=== PATIENT | male | born 1965 | race Caucasian/White ===

== ENCOUNTER 2016-07-27 00:26 | Emergency (ER) | payer OTHER, BC ==
[~2016-07-27 00:26] MED LIST: ALLO100T PO; HYDR-2762 PO; HYDR-971 PO; LEVO150T5 PO; MELO15TA6 PO; METH-37 PO; MONT10TA9 PO; TRAM50TA PO
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
[2016-07-27 00:57] LABS: HEMOGLOBIN ISTAT 14.3 gm/dL
[2016-07-27] MEDS: KETOROLAC 60 MG/2 ML VIAL. IM ONE (01:00)
[2016-07-27] MEDS: oxyCODONE/APAP 5/325 1 TAB TABLET PO ONE (01:00)
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
[2016-07-27] MEDS ORDERED: OXYC-323 PO (01:40)
[2016-07-27 01:50] VITALS: BP 156/100
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
== END 2016-07-27 01:50 | disposition home or self-care (01) ==
LOC: ER 00:26
DX: M54.9 Dorsalgia, unspecified (principal); M62.838 Other muscle spasm; M19.90 Unspecified osteoarthritis, unspecified site; R07.9 Chest pain, unspecified; E03.9 Hypothyroidism, unspecified; F12.10 Cannabis abuse, uncomplicated; Z87.440 Personal history of urinary (tract) infections; Z88.6 Allergy status to analgesic agent; V43.52XA Car driver injured in collision with other type car in traffic accident, initial encounter; Y93.89 Activity, other specified; Y99.8 Other external cause status; Y92.410 Unspecified street and highway as the place of occurrence of the external cause
CPT/HCPCS: 71020; 72072; 72100; 72125; 80047; 96372; 99284; J1885

== ENCOUNTER 2017-01-09 13:09 | Emergency (ER) | payer BC, OTHER ==
[~2017-01-09 13:09] MED LIST changes: +OXYC-323 PO
--- NOTE | 2017-01-09 14:17 | PHYS DOC ---
General Chief Complaint: BACK PAIN OR INJURY Stated Complaint: LOWER BACK AND HIP PAIN,LOW BLOOD PRESSURE Time Seen by MD: 13:40 Source: patient Exam Limitations: no limitations Problems: History of Present Illness Initial Comments Patient is a 59-year-old male who comes to the ED complaining of left-sided hip pain. Patient states that for the past 2 months he's had intermittent left hip pain, patient points to his left gluteus with complaint of radiation down his posterior left leg to the knee. He denies numbness tingling weakness or radiating symptoms, denies any known injury he states that he has seen his primary care doctor and they referred for physical therapy but has not followed up. Patient takes tramadol daily and has a hydrocodone prescription he takes when necessary. Patient states that he followed up with the PA at Dr. Zurita's office earlier today and physical therapy was recommended however patient was disappointed no imaging was undertaken. He states that the discomfort is worse when he's been sitting for a while and it does tend to loosen up with activity. He states that on discharge from Dr. Zurita's office earlier today his systolic blood pressure was 80 however he had no associated symptoms. Vital signs are stable here in the emergency department. Timing/Duration: other (2 months without any progression of symptoms) Severity: moderate Modifying Factors: worse with movement, improves with rest Associated Symptoms: other Allergies: Coded Allergies: naproxen (Verified Allergy, Mild, STOMACH UPSET, 07/27/16) Past Medical History Medical History: other (hypothyroid, gout, chronic pain, morbid obesity) Surgical History: other (right knee, appendectomy and reduction of intussusception as a ) Social History Smoker: non-smoker Alcohol: occasionally Drugs: none Review of Systems Constitutional: denies chills, denies diaphoresis, denies fever, denies malaise Respiratory: denies cough, denies shortness of breath Cardiovascular: denies chest pain, denies palpitations Gastrointestinal: denies diarrhea, denies nausea, denies vomiting Musculoskeletal: see HPI Psychiatric/Neurological: see HPI, anxiety, depressed, denies numbness, denies paresthesia, denies weakness Hematologic/Lymphatic: denies blood clots, denies easy bleeding, denies easy bruising Physical Exam General Appearance: no apparent distress, obese Ear, Nose, Throat: hearing grossly normal, normal ENT inspection Neck: non-tender, supple Respiratory: normal breath sounds, no respiratory distress Gastrointestinal: non tender, soft Back: no CVA tenderness, no vertebral tenderness Extremities: non-tender, normal inspection Neurologic/Psychiatric: egg candler II-XII nml as tested, no motor/sensory deficits ( DTRs/strength/sensory equal and intact bilateral lower extremities, negative straight leg raise bilaterally), alert, normal mood/affect, oriented x 3 Orders, Labs, Meds I discussed prescription and [id number] medications at length with the patient. I discussed the chronic nature of his symptoms as well as the pathophysiology and treatment for piriformis syndrome. I discussed chiropractic and massage therapy as well as consistent exercise and stretching. Signs and symptoms to monitor as well as indications for urgent return to the department were discussed the patient's questions were answered. He expressed agreement and understanding with the treatment plan. Departure Time of Disposition: 14:15 Disposition: 01 HOME, SELF-CARE Diagnosis: Left Piriformis Syndrome Condition: GOOD Patient Instructions: Piriformis Syndrome with Rehab-SportsMed Additional Instructions: Please review the patient education materials given by ED staff. Continue current medications. Continue daily exercise and stretching. Heating pad to affected area 20 minutes 4-6 times daily followed by gentle stretching. Consider outpatient massage or chiropractic therapy. Prescriptions: Prednisone, cyclobenzaprine Follow-up with Dr. Gr in one to 2 weeks for recheck. Return to ED with new or changing symptoms. VISH PALACIOS DO Jan 09, 2017 14:17
[2017-01-09] MEDS ORDERED: CYCL-331 PO (14:18)
[2017-01-09] MEDS ORDERED: PRED20TA PO (14:18)
[2017-01-09 14:25] VITALS: BP 118/74
== END 2017-01-09 14:30 | disposition home or self-care (01) ==
LOC: ER 13:09
DX: G57.02 Lesion of sciatic nerve, left lower limb (principal); E03.9 Hypothyroidism, unspecified; G89.29 Other chronic pain; M10.9 Gout, unspecified; E66.01 Morbid (severe) obesity due to excess calories; Z88.6 Allergy status to analgesic agent
CPT/HCPCS: 99283

== ENCOUNTER 2017-02-19 10:29 | Emergency (ER) | payer OTHER ==
[~2017-02-19] VITALS: Ht 193 cm; Wt 134.7 kg
[~2017-02-19 10:29] MED LIST changes: +CYCL-331 PO; +PRED20TA PO
[2017-02-19] MEDS ORDERED: KETOROLAC 60 MG/2 ML VIAL. IM ONE (11:00)
[2017-02-19] MEDS ORDERED: TETANUS AND DIPHTHERIA TOX/PF 0.5 ML VIAL. VAX IM ONE (11:00)
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
--- NOTE | 2017-02-19 11:59 | RAD ---
Indication:, Technique: CT head without IV contrast Comparison: None Findings: No pathologic extra-axial or intra-axial fluid collection. The ventricles and basal cisterns are within normal limits. No acute intracranial bleed. Orbits are within normal limits. No acute fractures. Mucus retention cyst or polyp seen in the left maxillary sinus. Rest of the paranasal sinuses and mastoid air cells are clear. Impression: No acute intracranial bleed. No calvarial fractures. CT maxillofacial bones Indication:, Technique: CT of the maxillofacial bones without IV contrast with multiplanar reformats. Comparison: None Findings: No acute fracture or dislocation. The mandible and temporomandibular joints are within normal limits. Mucus retention cyst or polyp seen in the left maxillary sinus. Rest of the paranasal sinuses are within normal limits. The lenses, globes and extraocular muscles are within normal limits. Visualized cervical spine is within normal limits. The nasopharynx and oropharynx are within normal limits. Impression: No acute findings. PQRS Compliance Statement: One or more of the following individualized dose reduction techniques were utilized for this examination: 1. Automated exposure control 2. Adjustment of the mA and/or kV according to patient size 3. Use of iterative reconstruction technique
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
[2017-02-19] MEDS ORDERED: HYDROcodone/APAP 5/325MG 1 TAB TABLET PO ONE (12:30)
[2017-02-19] MEDS ORDERED: CYCL-331 PO (12:48)
[2017-02-19] MEDS ORDERED: HYDR-971 PO (12:48)
[2017-02-19 12:57] VITALS: BP 178/107
== END 2017-02-19 13:00 | disposition home or self-care (01) ==
LOC: ER 10:29
DX: S00.83XA Contusion of other part of head, initial encounter (principal); S29.9XXA Unspecified injury of thorax, initial encounter; Z88.6 Allergy status to analgesic agent; V43.52XA Car driver injured in collision with other type car in traffic accident, initial encounter; Y93.89 Activity, other specified; Y99.8 Other external cause status; Y92.488 Other paved roadways as the place of occurrence of the external cause
CPT/HCPCS: 70450; 70486; 71101; 72125; 90471; 90714; 96372; 99284; J1885

== ENCOUNTER 2017-12-03 14:30 | Emergency (ER) | payer OTHER ==
[~2017-12-03] VITALS: Ht 193 cm; Wt 154.2 kg
--- NOTE | 2017-12-03 15:32 | PHYS DOC ---
Past History Past Medical History: Anxiety, Hypertension, Hypothyroid Past Surgical History: Knee Replacement Smoking: Non-smoker Alcohol Use: Occasionally Drug Use: None Adult General Chief Complaint Chief Complaint: LOWER EXTREMITY SWELLING [facility] HPI 52-year-old male presents with bilateral lower extremity swelling. Patient noticed that this started yesterday and has gotten worse today. He also has erythema of both lower extremities with warmth to the touch. The right leg is worse than the left. The patient has had some edema after working all day in the past but it resolves by morning. He states it is never been this swollen. Any diuretics. He is never had a workup for heart problems or CHF. He is obese. He works 12 hour shifts on his feet. He denies fever or chills. He has been feeling fine otherwise. Review of Systems Review of Systems Constitutional: Denies fever or chills [] Eyes: Denies change in visual acuity, redness, or eye pain [] HENT: Denies nasal congestion or sore throat [] Respiratory: Denies cough or shortness of breath [] Cardiovascular: No additional information not addressed in HPI [] GI: Denies abdominal pain, nausea, vomiting, bloody stools or diarrhea [] : Denies dysuria or hematuria [] Musculoskeletal: Bilateral lower extremity swelling[] Integument: Denies rash or skin lesions [] Neurologic: Denies headache, focal weakness or sensory changes [] Endocrine: Denies polyuria or polydipsia [] All other systems were reviewed and found to be within normal limits, except as documented in this note. Allergies Allergies Allergies Coded Allergies Type Severity Reaction Last Updated Verified naproxen Allergy Mild STOMACH UPSET 07/27/16 Yes cyclobenzaprine Allergy Unknown 12/03/17 Yes Physical Exam Physical Exam Constitutional: Well developed, well nourished, no acute distress, non-toxic appearance. [] HENT: Normocephalic, atraumatic, bilateral external ears normal, oropharynx moist, no oral exudates, nose normal. [] Eyes: PERRLA, EOMI, conjunctiva normal, no discharge. [] Neck: Normal range of motion, no tenderness, supple, no stridor. [] Cardiovascular:Heart rate regular rhythm, no murmur [] Lungs & Thorax: Bilateral breath sounds clear to auscultation [] Abdomen: Bowel sounds normal, soft, no tenderness, no masses, no pulsatile masses. [] Skin: Warm, dry, no erythema, no rash. [] Back: No tenderness, no CVA tenderness. [] Extremities: Bilateral lower extremity edema 3+, nonpitting. Right worse than left. Erythema with warmth to the touch of bilateral lower extremities from the mid calf down.[] Neurologic: Alert and oriented X 3, normal motor function, normal sensory function, no focal deficits noted. [] Psychologic: Affect normal, judgement normal, mood normal. [] EKG EKG [] Radiology/Procedures Radiology/Procedures [] Impressions: Bilateral lower extremity venous duplex study 12/03/2017 Clinical History: Bilateral leg swelling. Technique: Using a combination of real time ultrasound imaging and color-flow and pulse Doppler imaging techniques along with graded compression and augmentation, duplex evaluation of the deep venous system of the both lower extremities was performed. Multiple images were obtained. Findings: There is no sonographic evidence of deep venous thrombosis involving the visualized deep venous structures of either lower extremity. Incidental note is made of a 4.2 cm left inguinal lymph node with a normal-appearing fatty hilum. Impression: Negative study. Electronically signed by: Gutierrez Trevino MD (12/03/2017 5:12 PM) [facility] DICTATED AND SIGNED BY: GUTIERREZ TREVINO MD DATE: 12/03/171709 CC: YARI FONSECA DO; PCPJAMI Course & Med Decision Making Course & Med Decision Making Pertinent Labs and Imaging studies reviewed. (See chart for details) Patient's social history negative for DVT. Given the appearance of the lower legs, and concern for infection likely strep. It is a bit unusual to be bilateral. The patient does not have a fever. His labs are unremarkable, so outpatient treatment is reasonable. I will prescribe doxycycline for 10 days. We will give his first dose in the ED. Stable for discharge at this time. [] Dragon Disclaimer Dragon Disclaimer This electronic medical record was generated, in whole or in part, using a voice recognition dictation system. Departure Departure: Referrals: JAMI JERRY (PCP) YARI FONSECA DO Dec 03, 2017 15:32
[2017-12-03 15:51] LABS: BASO # 0.1 x10^3/uL (0.0-0.2); BASO % 1 % (0-3); EOS # 0.3 x10^3/uL (0.0-0.7); EOS % 4 % (0-3); HEMATOCRIT 37.9 % (39.0-53.0); HEMOGLOBIN 12.7 g/dL (13.0-17.5); LYMPH # 1.3 x10^3/uL (1.0-4.8); LYMPH % 18 % (24-48); MEAN CORPUSCULAR HEMOGLOBIN 29 pg (25-35); MEAN CORPUSCULAR HGB CONC 33 g/dL (31-37); MEAN CORPUSCULAR VOLUME 86 fL (79-100); MONO # 0.5 x10^3/uL (0.0-1.1); MONO % 7 % (0-9); NEUT # 5.1 x10^3uL (1.8-7.7); NEUT % 70 % (31-73); PLATELET COUNT 195 x10^3/uL (140-400); RED BLOOD COUNT 4.43 x10^6/uL (4.30-5.70); RED CELL DISTRIBUTION WIDTH 14.9 % (11.5-14.5); WHITE BLOOD COUNT 7.3 x10^3/uL (4.0-11.0)
[2017-12-03 16:12] LABS: ALBUMIN 3.8 g/dL (3.4-5.0); ALBUMIN/GLOBULIN RATIO 1.1 (1.0-1.7); GFR 78.2; POTASSIUM 4.2 mmol/L (3.5-5.1); TOTAL BILIRUBIN 0.3 mg/dL (0.2-1.0); TOTAL PROTEIN 7.2 g/dL (6.4-8.2)
--- NOTE | 2017-12-03 17:16 | RAD ---
Bilateral lower extremity venous duplex study 12/03/2017 Clinical History: Bilateral leg swelling. Technique: Using a combination of real time ultrasound imaging and color-flow and pulse Doppler imaging techniques along with graded compression and augmentation, duplex evaluation of the deep venous system of the both lower extremities was performed. Multiple images were obtained. Findings: There is no sonographic evidence of deep venous thrombosis involving the visualized deep venous structures of either lower extremity. Incidental note is made of a 4.2 cm left inguinal lymph node with a normal-appearing fatty hilum. Impression: Negative study. Electronically signed by: Gutierrez Su MD (12/03/2017 5:12 PM) [facility]
[2017-12-03] MEDS ORDERED: SULF1TAB24 PO (17:49)
[2017-12-03 18:00] VITALS: BP 135/80
[2017-12-03] MEDS ORDERED: DOXYCYCLINE HYCLATE 100 MG TABLET PO ONE (18:00)
[2017-12-03] MEDS ORDERED: SMZ/TMP 800/160MG TABLET. PO ONE (18:00)
== END 2017-12-03 18:04 | disposition home or self-care (01) ==
LOC: ER 14:30
DX: R22.43 Localized swelling, mass and lump, lower limb, bilateral (principal); L53.8 Other specified erythematous conditions; R60.0 Localized edema; F41.9 Anxiety disorder, unspecified; I10 Essential (primary) hypertension; E03.9 Hypothyroidism, unspecified; Z96.659 Presence of unspecified artificial knee joint; Z88.6 Allergy status to analgesic agent; Z88.8 Allergy status to other drugs, medicaments and biological substances
CPT/HCPCS: 36415; 80053; 83880; 85025; 93970; 99285

== ENCOUNTER 2018-04-07 16:57 | Emergency (ER) | payer OTHER ==
[~2018-04-07] VITALS: Ht 193 cm; Wt 150.0 kg
[~2018-04-07 16:57] MED LIST changes: -HYDR-2762 PO; +HYDR-2765 PO; +HYDR-3165 PO; -HYDR-971 PO; -OXYC-323 PO; +OXYC1TAB15 PO; +SULF1TAB24 PO
[2018-04-07 17:07] VITALS: BP 157/92
[2018-04-07] MEDS ORDERED: PHENTERMINE 37.5 MG (17:07)
[2018-04-07] MEDS ORDERED: ONDANSETRON ODT 8 MG TABLET (17:07)
[2018-04-07] MEDS ORDERED: ONDANSETRON 8 MG (17:07)
[2018-04-07] MEDS ORDERED: TRAMADOL 50MG TABLETS (17:07)
[2018-04-07] MEDS ORDERED: TRAMADOL HCL 50 MG (17:07)
[2018-04-07] MEDS ORDERED: METH750T2 PO (17:37)
[2018-04-07] MEDS ORDERED: TRAM-48 PO (17:37)
[2018-04-07] MEDS ORDERED: METH4TAB2 PO (17:37)
--- NOTE | 2018-04-07 17:37 | PHYS DOC ---
Past History Past Medical History: No Pertinent History Past Surgical History: No Surgical History Smoking: Non-smoker Alcohol Use: None Drug Use: None Adult General Chief Complaint Chief Complaint: BACK PAIN - NO INJURY HPI HPI Patient is a 52 year old male who presents with a pinning of back pain. Patient complaining of gradual onset of right mid and lower back pain for the last 2 days as a constant pain that getting worse with movement without injury or lifting. Patient denies radiation of pain, fever and chills, nausea and vomiting , urine and bowel incontinence. Patient denies weakness or numbness of lower extremity but complaining of intermittent episodes of right upper extremity numbness. Patient rated his pain 8 and states he did not take any pain medication today. Review of Systems Review of Systems Constitutional: Denies fever or chills [] Eyes: Denies change in visual acuity, redness, or eye pain [] HENT: Denies nasal congestion or sore throat [] Respiratory: Denies cough or shortness of breath [] Cardiovascular: No additional information not addressed in HPI [] GI: Denies abdominal pain, nausea, vomiting, bloody stools or diarrhea [] : Denies dysuria or hematuria [] Musculoskeletal: Reports back pain, denies joint pain [] Integument: Denies rash or skin lesions [] Neurologic: Denies headache, focal weakness or sensory changes [] Endocrine: Denies polyuria or polydipsia [] All other systems were reviewed and found to be within normal limits, except as documented in this note. Current Medications Current Medications Current Medications Medications (Trade) Dose Ordered Sig/Gerson Start Time Stop Time Status Last Admin Dose Admin Ketorolac Tromethamine (Toradol Im) 60 mg 1X ONCE 04/07/18 17:15 04/07/18 17:16 UNV Allergies Allergies Allergies Coded Allergies Type Severity Reaction Last Updated Verified naproxen Allergy Mild STOMACH UPSET 07/27/16 Yes cyclobenzaprine Allergy Unknown 12/03/17 Yes Physical Exam Physical Exam Constitutional: Well developed, well nourished, mild distress, non-toxic appearance, morbidly obese. [] HENT: Normocephalic, atraumatic. Eyes: PERRLA, EOMI, conjunctiva normal, no discharge. [] Neck: Normal range of motion, no tenderness, supple, no stridor. [] Cardiovascular:Heart rate regular rhythm, no murmur [] Lungs & Thorax: Bilateral breath sounds clear to auscultation [] Abdomen: Bowel sounds normal, soft, no tenderness, no masses, no pulsatile masses. [] Skin: Warm, dry, no erythema, no rash. [] Back: No midline tenderness, no CVA tenderness, painful range of motion. Extremities: No tenderness, no cyanosis, no clubbing, ROM intact, no edema. [] Neurologic: Alert and oriented X 3, normal motor function, normal sensory function, no focal deficits noted. [] Psychologic: Affect normal, judgement normal, mood normal. [] Current Patient Data Vital Signs Vital Signs Date Time Temp Pulse Resp B/P (MAP) Pulse Ox O2 Delivery O2 Flow Rate FiO2 04/07/18 17:07 70 16 96 Room Air EKG EKG [] Radiology/Procedures Radiology/Procedures [] Course & Med Decision Making Course & Med Decision Making Evaluation of patient in ER showed 49-year-old male patient with back pain without injury. Patient had unremarkable physical exam. Plan to take patient with probable in ER and discharge patient with prescription of Procardia, and Ultram. Dragon Disclaimer Dragon Disclaimer This electronic medical record was generated, in whole or in part, using a voice recognition dictation system. Departure Departure: Impression: Primary Impression: Acute lumbosacral myofascial strain Additional Impression: Morbid obesity Disposition: 01 HOME, SELF-CARE (at 1745) Condition: IMPROVED Referrals: MOR LOWE MD (PCP) Patient Instructions: Lumbosacral Strain Additional Instructions: Apply ice on the affected area Follow-up with your primary care physician in 3-5 days Return to ER if not getting better Scripts Methocarbamol (METHOCARBAMOL) 750 Mg Tablet 750 MG PO TID for back pain, #20 TAB Prov: TONYA MARINELLI MD 04/07/18 Tramadol Hcl (ULTRAM) 50 Mg Tablet 50 MG PO PRN Q6HRS PRN for PAIN, #14 TAB Prov: TONYA MARINELLI MD 04/07/18 Methylprednisolone (MEDROL) 4 Mg Tab.ds.pk 1 PKG PO UD for inflammation, #1 PKG Prov: TONYA MARINELLI MD 04/07/18 Problem Qualifiers TONYA MARINELLI MD Apr 07, 2018 17:37
[2018-04-07] MEDS ORDERED: KETOROLAC 60 MG/2 ML VIAL. IM ONE (17:45)
== END 2018-04-07 17:46 | disposition home or self-care (01) ==
LOC: ER 16:57
DX: S39.012A Strain of muscle, fascia and tendon of lower back, initial encounter (principal); E66.01 Morbid (severe) obesity due to excess calories; Z68.41 Body mass index [BMI] 40.0-44.9, adult; Z88.8 Allergy status to other drugs, medicaments and biological substances; X58.XXXA Exposure to other specified factors, initial encounter; Y93.89 Activity, other specified; Y92.89 Other specified places as the place of occurrence of the external cause; Y99.8 Other external cause status
CPT/HCPCS: 96372; 99283; J1885

== ENCOUNTER → 2018-05-23 | Outpatient (CLI) | payer OTHER ==
[~2018-05-23] MED LIST changes: +METH4TAB2 PO; +METH750T2 PO; +ONDANSETRON 8 MG; +ONDANSETRON ODT 8 MG TABLET; +PHENTERMINE 37.5 MG; +TRAM-48 PO; +TRAMADOL 50MG TABLETS; +TRAMADOL HCL 50 MG
--- NOTE | 2018-05-23 16:31 | RAD ---
Indication low back pain TECHNIQUE: 3 views of the lumbar spine COMPARISON: 07/27/2016 plain films FINDINGS: Lumbar spine is in normal anatomic alignment. Stable mild compression deformity of L1 vertebral body noted. No new compression deformities. Mild multilevel sclerosis of the endplates noted. SI joints within normal limits. IMPRESSION: Mild multilevel degenerative disc disease with stable mild compression deformity of L1 vertebral body. Electronically signed by: Henri Oates DO (05/23/2018 4:28 PM) [facility]
== END | disposition home or self-care (01) ==
LOC: DXRAD 15:53
PROVIDERS: ATTEND Registered Nurse
DX: M51.36 Other intervertebral disc degeneration, lumbar region (principal); M43.8X6 Other specified deforming dorsopathies, lumbar region
CPT/HCPCS: 72100

== ENCOUNTER 2020-11-21 14:04 | Emergency (ER) | payer SELFPAY ==
[~2020-11-21] VITALS: Ht 193 cm; Wt 159.0 kg
[~2020-11-21 14:04] MED LIST changes: +METH-560 PO; -METH750T2 PO; +MONT10TA80 PO; -MONT10TA9 PO
[2020-11-21 14:57] VITALS: BP 157/91
[2020-11-21] MEDS ORDERED: KETOROLAC 60 MG/2 ML VIAL. IM ONE (15:15)
[2020-11-21] MEDS ORDERED: ORPHENADRINE CITRATE 60 MG/2 ML VIAL. IM ONE (15:15)
[2020-11-21] MEDS ORDERED: BACL10TA PO (15:17)
--- NOTE | 2020-11-21 15:18 | PHYS DOC ---
Past History Past Medical History: No Pertinent History (BOYD FARR APRN) Past Surgical History: No Surgical History (BOYD FARR APRN) Smoking: Non-smoker Alcohol Use: None Drug Use: None (BOYD FARR APRN) General Adult EDM: Chief Complaint: BACK PAIN OR INJURY HPI: HPI: Patient is a 55-year-old male being seen in the ER for left low back pain that radiates into his hip and down his leg. Patient states the pain has been going on for 1 week. He states "it feels like his sciatic nerve". Patient rates pain 9 out of 10. No treatment prior to arrival. No injury. No saddle anesthesias, loss of bowel or bladder, numbness in his extremities. Patient is able to bear weight and ambulate. (BOYD FARR APRN) Review of Systems: Review of Systems: 14 body systems of the review of systems have been reviewed. See HPI for pertinent positive and negative responses, otherwise all other systems are negative, nonpertinent or noncontributory (BOYD FARR APRN) Allergies: Allergies: Allergies Coded Allergies Type Severity Reaction Last Updated Verified naproxen Allergy Mild STOMACH UPSET 11/21/20 Yes cyclobenzaprine Allergy Unknown 11/21/20 Yes (BOYD FARR APRN) Physical Exam: PE: Constitutional: Well developed, well nourished, no acute distress, non-toxic appearance. [] HENT: Normocephalic, atraumatic, bilateral external ears normal, oropharynx moist, no oral exudates, nose normal. [] Eyes: PERRLA, EOMI, conjunctiva normal, no discharge. [] Neck: Normal range of motion, no tenderness, supple, no stridor. [] Cardiovascular:Heart rate regular rhythm, no murmur [] Lungs & Thorax: Bilateral breath sounds clear to auscultation [] Abdomen: Bowel sounds normal, soft, no tenderness, no masses, no pulsatile masses. [] Skin: Warm, dry, no erythema, no rash. [] Back: No tenderness, no CVA tenderness. [] Extremities: No tenderness, no cyanosis, no clubbing, ROM intact, no edema. [] Neurologic: Alert and oriented X 3, normal motor function, normal sensory function, no focal deficits noted. [] Psychologic: Affect normal, judgement normal, mood normal. [] (BOYD FARR APRN) Current Patient Data: Vital Signs: Vital Signs Date Time Temp Pulse Resp B/P (MAP) Pulse Ox O2 Delivery O2 Flow Rate FiO2 11/21/20 14:57 98.2 88 20 157/91 (113) 97 Room Air (BOYD FARR APRN) EKG: EKG: [] (BOYD FARR APRN) Radiology/Procedures: Radiology/Procedures: PROCEDURE: LUMBAR SPINE 2-3V XR LUMBAR SPINE 2-3V History: Reason: low back pain / Spl. Instructions: / History: Technique: 3 views lumbar spine. Comparison: May 23, 2018. Findings: Chronic L1 vertebral body fracture, unchanged. Normal vertebral body alignment. No acute fracture. Degenerative disc changes most prominent L4-L5 and L5-S1. Lower lumbar facet arthropathy. Impression: 1. No acute osseous abnormality. 2. Chronic L1 vertebral body fracture, unchanged. 3. Multilevel lumbar spondylosis most prominent L4-5 and L5-S1, unchanged. Electronically signed by: Hemant Celaya DO (11/21/2020 4:02 PM) [facility] DICTATED AND SIGNED BY: HEMANT CELAYA DO DATE: 11/21/20 1600 CC: [facility], [facility]; BOYD FARR APRN ~MTH0 0 [] (BOYD FARR APRN) Heart Score: C/O Chest Pain: No Risk Factors: Risk Factors: DM, Current or recent (<one month) smoker, HTN, HLP, family history of CAD, obesity. Risk Scores: Score 0 - 3: 2.5% MACE over next 6 weeks - Discharge Home Score 4 - 6: 20.3% MACE over next 6 weeks - Admit for Clinical Observation Score 7 - 10: 72.7% MACE over next 6 weeks - Early Invasive Strategies (BOYD FARR APRN) Course & Med Decision Making: Course & Med Decision Making Pertinent Labs and Imaging studies reviewed. (See chart for details) [] Patient is a 55-year-old male being seen in the ER for left lower back pain that radiates down his leg. His symptoms are consistent with sciatica. A scan was performed of his lumbar spine and it was negative for any acute findings. Patient treated with Toradol which she is previously tolerated and orphenadrine. Patient states that he is allergic to Flexeril. Patient will be advised to take ibuprofen at home and follow-up with his primary care provider. Patient discharged home baclofen. I discussed with patient all findings and diagnostic testing as well as the need to follow-up with PCP for further evaluation and treatment or return to the ER if any new or worsening symptoms. Strict return precautions were also discussed at length. Patient voiced understanding and agreement with the plan. Patient is hemodynamically stable at the time of disposition. (BOYD FARR APRN) Course & Med Decision Making I was the Attending physician on the above date of service of this patient. This patient was evaluated, examined, treated, and dispositioned from the emergency department by the mid-level practitioner. Although I was working at the time , no assistance was requested. Electronically signed, Sid Howell DO (ISD HOWELL DO) Shahnaz Disclaimer: Shahnaz Disclaimer: This electronic medical record was generated, in whole or in part, using a voice recognition dictation system. (BOYD FARR APRN) Departure Departure: Impression: Primary Impression: Back pain Qualified Codes: M54.42 - Lumbago with sciatica, left side Disposition: HOME / SELF CARE / HOMELESS Condition: GOOD Referrals: [facility] (PCP) Patient Instructions: Sciatica Additional Instructions: You are being seen in the ER for low back pain. A scan was performed of your lumbar spine and it was negative for any acute findings. You were treated in the ER with anti-inflammatory medication and muscle relaxer. Please continue to take ibuprofen at home. You will be discharged home with baclofen which is a muscle relaxer. This location may cause drowsiness do not take need to be alert and do not take with any alcohol. Please follow-up with your primary care provider tomorrow regarding your ER visit. If you develop worsening of your pain, loss of bowel or bladder, numbness or tingling in your groin or down your extremities, inability to bear weight or ambulate please return to the ER. EMERGENCY DEPARTMENT GENERAL DISCHARGE INSTRUCTIONS Thank you for coming to [facility] (ED) today and trusting us with you care. We trust that you had a positivie experience in our Emergency Department. If you wish to speak to the department management, you may call the director at [phone]. YOUR FOLLOW UP INSTRUCTIONS ARE FOLLOWS: 1. Do you have a private Doctor? If you do not have a private doctor, please ask for a resource list of physicians or clinics that may be able to assist you with follow up care. 2. The Emergency Physician has interpreted your x-rays. The X-Ray specialist will also review them. If there is a change in the findings, you will be notified in 48 hours when at all possible. 3. A lab test or culture has been done, your results will be reviewed and you will be notified if you need a change in treatment. ADDITIONAL INSTRUCTIONS AND INFORMATION: 1. Your care today has been supervised by a physician who is specially trained in emergency care. Many problems require more than one evaluation for a complete diagnosis and treatment. We recommend that you schedule your follow up appointment as recommended to ensure complete treatment of you illness or injury. If you are unable to obtain follow up care and continue to have a problem, or if your condition worsens, we recommend that you return to the ED. 2. We are not able to safely determine your condition over the phone nor are we able to give sound medical advice over the phone. For these safety reasons, if you call for medical advice we will ask you to come to the ED for further evaluation. 3. If you have any questions regarding these discharge instructions please call the ED at [phone]. SAFETY INFORMATION: In the interest of safety, wellness, and injury prevention; we encourage you to wear your sealbelt, if you smoke; quite smoking, and we encourage family to use a protective helmet for bicycling and other sporting events that present an increased risk for head injury. IF YOUR SYMPTOMS WORSEN OR NEW SYMPTOMS DEVELOP, OR YOU HAVE CONCERNS ABOUT YOUR CONDITION; OR IF YOUR CONDITION WORSENS WHILE YOU ARE WAITING FOR YOUR FOLLOW UP APPOINTMENT; EITHER CONTACT YOUR PRIMARY CARE DOCTOR, THE PHYSICIAN WHOSE NAME AND NUMBER YOU WERE GIVEN, OR RETURN TO THE ED IMMEDIATELY. Scripts Baclofen (BACLOFEN) 10 Mg Tablet 1 TAB PO TID for muscle spasm for 5 Days, #15 TAB 0 Refills Prov: BOYD FARR APRN 11/21/20 BOYD FARR APRN Nov 21, 2020 15:18 SID HOWELL DO Nov 22, 2020 06:55
--- NOTE | 2020-11-21 16:04 | RAD ---
XR LUMBAR SPINE 2-3V History: Reason: low back pain / Spl. Instructions: / History: Technique: 3 views lumbar spine. Comparison: May 23, 2018. Findings: Chronic L1 vertebral body fracture, unchanged. Normal vertebral body alignment. No acute fracture. De generative disc changes most prominent L4-L5 and L5-S1. Lower lumbar facet arthropathy. Impression: 1. No acute osseous abnormality. 2. Chronic L1 vertebral body fracture, unchanged. 3. Multilevel lumbar spondylosis most prominent L4-5 and L5-S1, unchanged. Electronically signed by: Hemant Celaya DO (11/21/2020 4:02 PM) [facility]
== END 2020-11-21 16:51 | disposition home or self-care (01) ==
LOC: ER 14:04
DX: M54.42 Lumbago with sciatica, left side (principal); Z88.8 Allergy status to other drugs, medicaments and biological substances
CPT/HCPCS: 72100; 96372; 99284; J1885; J2360